=== PATIENT | female | born 1960 | race Caucasian/White ===

== ENCOUNTER → 2018-02-26 | Outpatient (CLI) | payer OTHER ==
--- NOTE | 2018-02-26 15:56 | PCVCIMAG ---
APPROVED REPORT Study performed: 02/26/2018 13:35:17 EXAM: Comprehensive 2D, Doppler, and color-flow Echocardiogram Patient Location: Echo lab Room #: 2Status: routine BSA: 2.43 HR: 92 bpmBP: 128/78 mmHg Rhythm: NSR Other Information Study Quality: Poor Risk Factors: Cardiac Risk Factors: Hyperlipidemia Indications Abnormal ECG Dyspnea 2D Dimensions LVEF(%): 55.53 (>50%) IVSd: 6.71 (7-11mm)LVOT Diam: 19.69 (18-24mm) LVDd: 45.26 mm PWd: 6.90 (7-11mm)Ascending Ao: 32.21 (22-36mm) LVDs: 32.23 (25-40mm) Left Atrium: 30.90 (27-40mm) Aortic Root: 28.55 mm Singh's LVEF: 55.53 % Volumes Left Atrial Volume (Systole) Single Plane 4CH: 40.32 mLSingle Plane 2CH: 27.48 mL Biplane LA Volume: 39.00 mLLA ESV Index: 16.00 mL/m2 Aortic Valve AoV Peak Yobani.: 1.62 m/s AO Peak Gr.: 10.50 mmHgLVOT Max P.63 mmHg LVOT Max V: 0.95 m/s EDU Vmax: 1.79 cm2 Mitral Valve E/A Ratio: 0.8 MV Decel. Time: 151.86 ms MV E Max Yobani.: 0.63 m/s MV A Yobani.: 0.77 m/s IVRT: 65.74 ms Pulmonary Valve PV Peak Yobani.: 1.06 m/sPV Peak Gr.: 4.49 mmHg Tricuspid Valve TR Peak Yobani.: 1.50 m/s TR Peak Gr.: 9.00 mmHg TV Vmax: 0.61 m/sPA Pressure: 16.00 mmHg Left Ventricle The left ventricle is normal size. There is normal LV segmental wall motion. There is normal left ventricular wall thickness. Left ventricular systolic function is normal. The left ventricular ejection fraction is within the normal range. LVEF is >55%. Transmitral Doppler flow pattern suggests impaired LV relaxation. Right Ventricle The right ventricle is normal size. The right ventricular systolic function is normal. Atria The left atrium size is normal. The right atrium size is normal. Aortic Valve Aortic valve is trileaflet. The Aortic valve is minimally sclerotic. No aortic regurgitation is present. There is no aortic valvular stenosis. Mitral Valve The mitral valve is normal in structure. There is no mitral valve regurgitation noted. No evidence of mitral valve stenosis. Tricuspid Valve The tricuspid valve is normal in structure. Trace tricuspid regurgitation with a normal PA pressure of 16 mmHg. Pulmonic Valve The pulmonary valve is normal in structure. There is no pulmonic valvular regurgitation. Great Vessels The aortic root is normal in size. The ascending aorta is normal in size. Aortic arch is normal in caliber. IVC is normal in size and collapses with >50% inspiration Pericardium There is no pericardial effusion. There is no pleural effusion. <Conclusion> The left ventricle is normal size. There is normal left ventricular wall thickness. Left ventricular systolic function is normal. Transmitral Doppler flow pattern suggests impaired LV relaxation. The right ventricle is normal size. The left atrium size is normal. There is no aortic valvular stenosis. There is no mitral valve regurgitation noted. Trace tricuspid regurgitation with a normal PA pressure of 16 mmHg.
== END | disposition home or self-care (01) ==
LOC: PCVCIMAG 15:48
PROVIDERS: ATTEND Internal Medicine Cardiovascular Disease
DX: R94.31 Abnormal electrocardiogram [ECG] [EKG] (principal); R06.09 Other forms of dyspnea; E78.5 Hyperlipidemia, unspecified
CPT/HCPCS: 93306